=== PATIENT | female | born 1990 | race Asian ===

== ENCOUNTER 2017-07-30 09:41 | Emergency (ER) | payer OTHER ==
[2017-07-30] MEDS ORDERED: NS 0.9% 1000 ML* 1,000 ML IV ONE (10:14)
[2017-07-30] MEDS ORDERED: Ketorolac INJ* 30 MG/ML 1 ML VIAL IV ONE (10:14)
[2017-07-30 10:45] LABS: ABS Basophils 0 10^3/ul (0-0.2); ABS Eosinophils 0 10^3/ul (0-0.6); ABS Lymphocytes 0.9 10^3/ul (1.0-4.8); ABS Monocytes 1.1 10^3/ul (0-0.8); ABS Neutrophils 11.8 10^3/ul (1.5-7.7); ABS Nucleated RBC 0 10^3/ul; Eosinophil % 0.1 % (0-6); Hematocrit 38 % (35-47); Hemoglobin 12.9 g/dl (12.0-16.0); Lymphocyte % 6.2 % (25-47); Mean Corpuscular HGB Conc 34 g/dl (31-36); Mean Corpuscular Hemoglobin 30 pg (27-31); Mean Corpuscular Volume 89 fL (80-97); Mean Platelet Volume 7 um3 (7.4-10.4); Nucleated Red Blood Cells % 0; Platelet Count 201 10^3/ul (150-450); Red Blood Count 4.27 10^6/ul (4.0-5.4); Red Cell Distribution Width 13 % (10.5-15); White Blood Count 13.8 10^3/ul (3.5-10.8)
[2017-07-30 10:51] LABS: Urine Appearance Cloudy; Urine Blood 3+ (Negative); Urine Color Yellow; Urine Ketones Negative (Negative); Urine Protein 2+(100 mg/dL) (Negative); Urine Specific Gravity 1.029 (1.010-1.030); Urine Urobilinogen Negative (Negative)
[2017-07-30 11:01] LABS: EGFR Non-African American 90.6 (>60)
--- NOTE | 2017-07-30 12:22 | RAD ---
INDICATION: Pelvic pain. COMPARISON: There are no prior studies available for comparison. TECHNIQUE: Multiple real-time transabdominal images of the pelvis were obtained. The patient was unable to tolerate transvaginal imaging. FINDINGS: The uterus is normal in size, shape and echogenicity. The uterus measured 7.3 x 2.7 x 5.6 cm. The endometrial echo measured 0.7 cm in thickness. The ovaries are not distinctly visualized. Superior to the uterus and posterior to the bladder there there is a complex cystic structure centered toward the right side there is a simple cystic component measuring 6.4 x 4.9 x 4.3 cm. Toward the left side there is a complex cystic structure with a fluid fluid level measuring 6.5 x 6.0 x 6.5 cm. The whole structure measures 10.2 x 9.7 x 7.1 cm. This structure may represent both ovaries touching in the midline although this is not definite. There is vascular flow in both components without gross evidence for torsion. No free intraperitoneal fluid is seen. IMPRESSION: THE OVARIES ARE NOT DISTINCTLY VISUALIZED. SUPERIOR TO THE UTERUS IN THE MIDLINE THERE IS A COMPLEX CYSTIC STRUCTURE WHICH MAY REPRESENT BOTH OVARIES ADJACENT TO EACH OTHER IN THE MIDLINE OR A SINGLE ENLARGED OVARY. THIS CONTAINS A SIMPLE CYST AND A COMPLEX STRUCTURE WHICH MAY REPRESENT A HEMORRHAGIC CYST, ENDOMETRIOMA OR LESS LIKELY A SOLID ABNORMALITY. RECOMMEND A FOLLOW-UP PELVIC ULTRASOUND IN ONE MONTHS TIME TO DEMONSTRATE RESOLUTION AND GYNECOLOGIC CONSULTATION.
[2017-07-30 12:55] VITALS: BP 123/53
--- NOTE | 2017-07-31 16:43 | ED ---
Maria Del Rosario Herbert Thomas, scribed for Davidson Lazaro MD on 07/30/17 at 1028 . GI/ HPI - HPI Summary HPI Summary: The patient is a 26 year old female presenting with pelvic pain that began 10 hours before arrival. It waxes and wanes from 06/30 to 01/28. She also complains of hematuria and a pins and needle sensation when she urinates. She is currently menstruating. - History of Current Complaint Chief Complaint: EDAbdPain Time Seen by Provider: 07/30/17 10:07 Stated Complaint: FEVER,LOWER ABD PAIN Hx Obtained From: Patient Onset/Duration: Started Hours Ago - 10, Still Present Timing: Constant Current Severity: Moderate Pain Intensity: 1 Pain Characteristics: Other: - Pins/needles when urinates Associated Signs and Symptoms: Positive: Other: - Hematuria, pelvic pain Alleviating Factor(s): Nothing - Allergy/Home Medications Allergies/Adverse Reactions: Allergies Allergy/AdvReac Type Severity Reaction Status Date / Time MS Penicillins [Penicillins] Allergy Rash And Verified 07/30/17 09:47 Itching PMH/Surg Hx/FS Hx/Imm Hx Endocrine/Hematology History: Denies: Hx Diabetes, Hx Anemia Cardiovascular History: Denies: Hx Congestive Heart Failure, Hx Hypertension GI History: Denies: Hx Jaundice History: Denies: Hx Renal Disease Infectious Disease History: No Infectious Disease History: Denies: Traveled Outside the [place] in Last 30 Days - Family History Known Family History: Positive: Other - Patient denies relevant FHx - Social History Alcohol Use: None Substance Use Type: Reports: None Smoking Status (MU): Never Smoked Tobacco Review of Systems Negative: Fever Positive: dysuria, hematuria, other - Pelvic pain All Other Systems Reviewed And Are Negative: Yes Physical Exam - Summary Physical Exam Summary: VITAL SIGNS: Reviewed. GENERAL: Patient is a well-developed and nourished female who is lying comfortable in the stretcher. Patient is not in any acute respiratory distress. HEAD AND FACE: Normocephalic and atraumatic. EYES: PERRLA, EOMI x 2, No injected conjunctiva. EARS: Hearing grossly intact. Ear canals and tympanic membranes are WNL. MOUTH: Oropharynx within normal limits. NECK: Supple, trachea is midline, no adenopathy, no JVD. CHEST: Symmetric, no tenderness at palpation LUNGS: Clear to auscultation bilaterally. No wheezing or crackles. CVS: RRR, S1 and S2 present, no murmurs or gallops appreciated. ABDOMEN: Soft. She is tender in some areas of the lower pelvis. No signs of distention. Positive bowel sounds. No rebound no guarding, and no masses palpated. No abdominal bruit or pulsations. EXTREMITIES: FROM in all major joints, no edema, no cyanosis or clubbing. NEURO: Alert and oriented x 3. No acute neurological deficits. Speech is normal. SKIN: Dry and warm Triage Information Reviewed: Yes Vital Signs On Initial Exam: Initial Vitals Temp Pulse Resp BP Pulse Ox 98.5 F 97 17 115/59 98 07/30/17 09:47 07/30/17 09:47 07/30/17 09:47 07/30/17 09:47 07/30/17 09:47 Vital Signs Reviewed: Yes Diagnostics - Vital Signs Vital Signs Temp Pulse Resp BP Pulse Ox 07/30/17 09:47 98.5 F 97 17 115/59 98 - Laboratory Lab Results: Lab Results 07/30/17 07/30/17 07/30/17 Range/Units 10:20 10:20 10:20 WBC 13.8 H (3.5-10.8) 10^3/ul RBC 4.27 (4.0-5.4) 10^6/ul Hgb 12.9 (12.0-16.0) g/dl Hct 38 (35-47) % MCV 89 (80-97) fL MCH 30 (27-31) pg MCHC 34 (31-36) g/dl RDW 13 (10.5-15) % Plt Count 201 (150-450) 10^3/ul MPV 7 L (7.4-10.4) um3 Neut % (Auto) 85.7 H (38-83) % Lymph % (Auto) 6.2 L (25-47) % Coles % (Auto) 7.9 (1-9) % Eos % (Auto) 0.1 (0-6) % Baso % (Auto) 0.1 (0-2) % Absolute Neuts (auto) 11.8 H (1.5-7.7) 10^3/ul Absolute Lymphs (auto) 0.9 L (1.0-4.8) 10^3/ul Absolute Monos (auto) 1.1 H (0-0.8) 10^3/ul Absolute Eos (auto) 0 (0-0.6) 10^3/ul Absolute Basos (auto) 0 (0-0.2) 10^3/ul Absolute Nucleated RBC 0 10^3/ul Nucleated RBC % 0 Sodium 138 (133-145) mmol/L Potassium 3.5 (3.5-5.0) mmol/L Chloride 106 (101-111) mmol/L Carbon Dioxide 25 (22-32) mmol/L Anion Gap 7 (2-11) mmol/L BUN 11 (6-24) mg/dL Creatinine 0.76 (0.51-0.95) mg/dL Est GFR ( Amer) 116.5 (>60) Est GFR (Non-Af Amer) 90.6 (>60) BUN/Creatinine Ratio 14.5 (8-20) Glucose 128 H (70-100) mg/dL Calcium 8.9 (8.6-10.3) mg/dL Total Bilirubin 0.80 (0.2-1.0) mg/dL AST 18 (13-39) U/L ALT 16 (7-52) U/L Alkaline Phosphatase 43 (34-104) U/L C-Reactive Protein 14.55 H (< 5.00) mg/L Total Protein 6.8 (6.4-8.9) g/dL Albumin 4.2 (3.2-5.2) g/dL Globulin 2.6 (2-4) g/dL Albumin/Globulin Ratio 1.6 (1-3) Beta HCG, Quant < 0.60 mIU/mL Urine Color Yellow Urine Appearance Cloudy Urine pH 6.0 (5-9) Ur Specific Donovan 1.029 (1.010-1.030) Urine Protein 2+(100 mg/dl) H (Negative) Urine Ketones Negative (Negative) Urine Blood 3+ H (Negative) Urine Nitrate Negative (Negative) Urine Bilirubin Negative (Negative) Urine Urobilinogen Negative (Negative) Ur Leukocyte Esterase Trace H (Negative) Urine WBC (Auto) 2+(11-20/hpf) H (Absent) Urine RBC (Auto) 3+(>10/hpf) H (Absent) Ur Squamous Epith Cells Present H (Absent) Urine Bacteria Absent (Absent) Urine Glucose Negative (Negative) Result Diagrams: 07/30/17 10:20 07/30/17 10:20 Lab Statement: Any lab studies that have been ordered have been reviewed, and results considered in the medical decision making process. - Additional Comments Diagnostic Additional Comments: Ultrasound Transvaginal. Interpreted by radiologist. Impression: THE OVARIES ARE NOT DISTINCTLY VISUALIZED. SUPERIOR TO THE UTERUS IN THE MIDLINE THERE IS A COMPLEX CYSTIC STRUCTURE WHICH MAY REPRESENT BOTH OVARIES ADJACENT TO EACH OTHER IN THE MIDLINE OR A SINGLE ENLARGED OVARY. THIS CONTAINS A SIMPLE CYST AND A COMPLEX STRUCTURE WHICH MAY REPRESENT A HEMORRHAGIC CYST, ENDOMETRIOMA OR LESS LIKELY A SOLID ABNORMALITY. RECOMMEND A FOLLOW-UP PELVIC ULTRASOUND IN ONE MONTHS TIME TO DEMONSTRATE RESOLUTION AND GYNECOLOGIC CONSULTATION. Dr. Lazaro has reviewed this report. GIGU Course/Dx - Course Assessment/Plan: The patient is a 26 year old female presenting with pelvic pain that began 10 hours before arrival. It waxes and wanes from 1/10 to 8/10. She also complains of hematuria and a pins and needle sensation when she urinates. She is currently menstruating. Patient declined pelvic exam. Test results are without any significant abnormalities except WBC 13.8, CRP 14.5. Urinalysis is contaminated. Pelvic ultrasound shows THE OVARIES ARE NOT DISTINCTLY VISUALIZED. SUPERIOR TO THE UTERUS IN THE. MIDLINE THERE IS A COMPLEX CYSTIC STRUCTURE WHICH MAY REPRESENT BOTH OVARIES ADJACENT TO. EACH OTHER IN THE MIDLINE OR A SINGLE ENLARGED OVARY. THIS CONTAINS A SIMPLE CYST AND A. COMPLEX STRUCTURE WHICH MAY REPRESENT A HEMORRHAGIC CYST, ENDOMETRIOMA OR LESS LIKELY A. SOLID ABNORMALITY. RECOMMEND A FOLLOW-UP PELVIC ULTRASOUND IN ONE MONTHS TIME TO. DEMONSTRATE RESOLUTION AND GYNECOLOGIC CONSULTATION. I consulted with SUSSY Queen. She reports there are no significant abnormalities at this point. She reviewed the bloodwork and ultrasound. She recommends pain medication and discharge home to follow up at her office in three days. - Diagnoses Provider Diagnoses: Pelvic pain - Physician Notifications Discussed Care Of Patient With: Alix Martinez Time Discussed With Above Provider: 12:34 Instructed by Provider To: Other - I consulted with SUSSY Queen. She reports there are no significant abnormalities at this point. She reviewed the bloodwork and ultrasound. She recommends pain medication and discharge home to follow up at her office in three days. Discharge - Discharge Plan Condition: Stable Disposition: HOME Prescriptions: Naproxen [Naproxen 500 mg] 500 mg PO BID #20 tablet Patient Education Materials: Pelvic Pain in Women (ED) Referrals: Alix Martinez MD [Medical Doctor] - 08/02/17 Additional Instructions: FOLLOW UP WITH DR. MARTINEZ OBGYN, FOR AN APPOINTMENT ON 08/02/17. Return to the emergency department for new or worsening symptoms. The documentation as recorded by the Maria Del Rosario greenfield Thomas accurately reflects the service I personally performed and the decisions made by Tejas buckley Walter, MD.
== END 2017-07-30 12:54 | disposition home or self-care (01) ==
LOC: ED 09:41
DX: R10.2 Pelvic and perineal pain (principal); Z88.0 Allergy status to penicillin
CPT/HCPCS: 36415; 76856; 80053; 81003; 81015; 84702; 85025; 86140; 87077; 87086; 96360; 96374; 99282; J1885

== ENCOUNTER 2017-11-18 07:10 | Day surgery (SDC) | payer OTHER ==
[~2017-11-18 07:10] MED LIST: Buffered Lidocaine 0.9% SYRIN* 5 ML/SYR SYRINGE INTRADERM ONE; Dexamethasone IV* 4 MG/ML 1 ML (4 MG) IV SLOW PU ONE; Famotidine IV* 10 MG/ML 2 ML (20 mg) IV ONE
[2017-11-18] MEDS ORDERED: Famotidine IV* 10 MG/ML 2 ML (20 mg) ONE (07:25)
[2017-11-18] MEDS ORDERED: Dexamethasone IV* 4 MG/ML 1 ML (4 MG) ONE (07:25)
[2017-11-18 08:09] LABS: Hematocrit 37 % (35-47); Hemoglobin 12.6 g/dl (12.0-16.0); Mean Corpuscular HGB Conc 34 g/dl (31-36); Mean Corpuscular Hemoglobin 30 pg (27-31); Mean Corpuscular Volume 87 fL (80-97); Mean Platelet Volume 8.1 um3 (7.4-10.4); Platelet Count 223 10^3/ul (150-450); Red Blood Count 4.22 10^6/ul (4.0-5.4); Red Cell Distribution Width 14 % (10.5-15); White Blood Count 6.9 10^3/ul (3.5-10.8)
[2017-11-18] MEDS ORDERED: Bupivacaine 0.5% SDV PF* 30ML VIAL ONE (09:41)
[2017-11-18] MEDS ORDERED: fentaNYL* 50 MCG/ML 2 ML VIAL (100 MCG VIAL) ONE ×2 (09:55→12:15)
[2017-11-18] MEDS ORDERED: Midazolam* 1 MG/ML 2 ML VIAL (2 MG) ONE (09:55)
[2017-11-18] MEDS ORDERED: Rocuronium* 10 MG/ML VIAL ONE (10:06)
[2017-11-18] MEDS ORDERED: Lidocaine 2% PF * 5 ML VIAL ONE (10:07)
[2017-11-18] MEDS ORDERED: Propofol* 10 MG/ML 20 ML BTL IV PUSH ONE (10:07)
[2017-11-18] MEDS ORDERED: Metoclopramide IV* 5 MG/ML 2 ML VIAL ONE (10:53)
[2017-11-18] MEDS ORDERED: Neostigmine Methylsulfate* 1 MG/ML 10 ML VIAL (1 mg/ml) ONE (10:53)
[2017-11-18] MEDS ORDERED: Ketorolac INJ* 30 MG/ML 1 ML VIAL ONE (10:53)
[2017-11-18] MEDS ORDERED: Glycopyrrolate IV* 0.2 MG/ML 1 ML VIAL ONE (10:53)
[2017-11-18] MEDS ORDERED: fentaNYL* 50 MCG/ML 2 ML VIAL (100 MCG VIAL) IV PRN (12:01)
[2017-11-18] MEDS ORDERED: HYDROmorphone INJ* 1 MG/ML CARPUJECT SYRINGE IV PRN (12:01)
[2017-11-18] MEDS ORDERED: Naloxone* 0.4 MG/ML 1 ML VIAL IV PRN (12:01)
[2017-11-18] MEDS ORDERED: Ondansetron ODT TAB* 4 MG PO PRN (12:01)
[2017-11-18] MEDS ORDERED: oxyCODONE/Acetamin 5/325 MG* TAB ONE (13:28)
[2017-11-18 14:29] VITALS: BP 103/55
--- NOTE | 2017-11-20 14:35 | OP ---
DATE OF OPERATION: 11/18/17 [facility] DATE OF : 86 SURGEON: Valerie Palencia MD ROCKET SCIENTIST: Alix Martinez MD ANESTHESIOLOGIST: Dr. Solorio. ANESTHESIA: General endotracheal. PRE-OP DIAGNOSIS: Large left ovarian cyst. POST-OP DIAGNOSES: 1. Bilateral ovarian cysts. 2. Apparent stage 4 endometriosis. OPERATIVE PROCEDURE: Laparoscopic bilateral ovarian cystectomies and lysis of adhesions. ESTIMATED BLOOD LOSS: 30 cc. URINE OUTPUT: 300 cc. IV FLUIDS: 900 cc lactated Ringer's. MATERIALS TO LAB: Bilateral ovarian cyst ponce. INDICATION: This patient is a 27-year-old 0 who was followed in the office for a couple of months after she was found to have an approximately 6.5 cm left ovarian cyst on ultrasound in the ER. The patient's pain mostly resolved but when she returned for followup, the cyst had grown to about 8 cm. Considering the cyst was growing, we decided to proceed with a laparoscopic ovarian cystectomy. The left ovarian cyst appeared to be fairly simple and appeared to be most consistent with a simple follicular cyst or a cystadenoma. She was extensively counseled for a laparoscopic left ovarian cystectomy. FINDINGS: Large approximately 8 cm left ovarian cyst, which when opened was productive of dark brown material consistent with a likely endometrioma. Right ovarian cyst was also present probably about 5 to 6 cm. This was filled with only clear fluid. Of note, there appeared to be stage 4 endometriosis with extensive scarring from the ovaries to the posterior uterus, and much of the posterior cul-de-sac was already obliterated. COMPLICATIONS: None. DESCRIPTION OF PROCEDURE: The risks, benefits, and alternatives were described to the patient and informed consent was obtained. The patient was taken to the operating room with IV running where general anesthesia was induced and found to be adequate. The patient was prepped and draped in the normal sterile fashion in the high lithotomy position in [facility]. A time-out was performed. A Shirley catheter was placed. A bivalve speculum was placed in the vagina and a Hulka tenaculum was placed on the cervix. The speculum was then removed and attention was turned to the abdomen. The patient was placed in the low lithotomy position. 0.25% Marcaine was then injected into the patient's umbilicus. A 5-mm incision was then made in the umbilicus and the skin was elevated using penetrating towel clamps. A 5-mm bladeless trocar was then placed through the incision and into the peritoneal cavity. The abdomen was insufflated with carbon dioxide gas to a maximum pressure of 15 mmHg. On careful inspection of the area below the trocar insertion, there was no visible evidence of trauma or bleeding. The patient was placed in the Trendelenburg position and the findings are noted above. 0.25 % Marcaine was injected in the right and left lower quadrants and 5-mm bladeless trocars were placed into each of those incisions as well. The patient 's left ovarian cyst was then incised using a laparoscopic shear using cautery. A suction sales account manager was then placed into the ovarian cyst and the dark brown fluid was aspirated. Any of the fluid that had leaked was also irrigated with saline and aspirated. A LigaSure device was then used to extend the ovarian cyst opening. [place] graspers were then used to peel off the ovarian cyst wall as much as possible. These pieces of tissue were collected for specimen. With some cauterization with the LigaSure, there was good hemostasis. The right ovarian cyst was also opened using cauterization. This wall was thicker and there was only simple clear fluid within this. This was again opened further with the LigaSure. Care was taken to avoid the pelvic sidewall. The ovary was densely adhesed to the sidewall, and there was no clear plane. The cyst wall was again peeled off as much as possible using [place] and blunt graspers. Using the LigaSure, there was good hemostasis assured. The pelvis was copiously irrigated and the fluid was aspirated. Some adhesions between the ovaries and from the ovary to the posterior uterus were taken down using the armin with and without cauterization. There was good hemostasis present. The patient's left fallopian tube appeared quite normal. The right fallopian tube, however, appeared quite blunted where it was behind the ovary. At that time, the procedure was discontinued. The patient was returned to a flat position. The gas was allowed to escape from the abdomen and all 3 trocars were removed. The right and left incisions were reapproximated using 4-0 Monocryl in a subcuticular stitch and then DermaFlex skin adhesive was placed over all 3 incisions. The Hulka tenaculum was then removed from the cervix and she was returned to the supine position. The patient tolerated the procedure well. Sponge, lap, and needle counts were correct x2. [id number]/[facility] #: [id number] [facility]
== END 2017-11-18 15:01 | disposition home or self-care (01) ==
LOC: OR 07:10
PROVIDERS: ATTEND Obstetrics & Gynecology
DX: D27.1 Benign neoplasm of left ovary (principal); N83.11 Corpus luteum cyst of right ovary; N73.6 Female pelvic peritoneal adhesions (postinfective); Z87.440 Personal history of urinary (tract) infections; E04.1 Nontoxic single thyroid nodule
CPT/HCPCS: 36415; 81025; 85027; 86850; 86900; 86901; 88305; A9270-GY; J1100; J1885; J2250; J2704; J2710; J2765; J3010